=== PATIENT | male | born 1935 | race Caucasian/White ===

== ENCOUNTER → 2016-09-18 | Outpatient (CLI) | payer BC, MEDICARE ==
[2016-06-30 14:34] VITALS: BP 143/97
[~2016-09-18] MED LIST: AMLO10TA2; AMLO10TA2 PO; AMLO5TAB4 PO; ASPI325T4 PO; ASPI81TA9 PO; Aspirin PO; CARV6.252; CARV6.252 PO; CLOP75TA PO; CLOP75TA27 PO; DONE5TAB7; FAMO-63 PO; FENO134C10 PO; GLIP10TA13; GLIP10TA13 PO; GLIP10TA20 PO; HYDR-2762 PO; HYDR12.58 PO; IOHEXOL 350 MG/ML 100 ML VIAL. IV ONE; LISI2.5T PO; LORA0.5T PO; LOSA100T6 PO; LOSA1TAB18 PO; Lisinopril PO; METF500T4 PO; METO100T11 PO; METO1TAB7 PO; METO25TA9; METO25TA9 PO; OMEG500C PO; ONDA4TAB7 PO; POLY17PO5 PO; REGO40TA PO; SENN8.6T99 PO; SIMV10TA3 PO; SIMV20TA PO; SIMV80TA3 PO; TORS5TAB3 PO; ZOLP5TAB PO
[2016-09-18 09:42] LABS: CREATININE 1.3 mg/dL (0.7-1.3)
--- NOTE | 2016-09-18 12:56 | RAD ---
CTA of the abdomen, pelvis and both lower extremities with contrast, 09/18/2016: History: Abdominal aortic and popliteal artery aneurysms Multidetector CT imaging was performed following an IV bolus injection of iodinated contrast material. Multiplanar reconstructions were produced as well as 3-D volume rendered reconstructions of the major arteries. Comparison is made to a study from 08/22/2015. There is moderate calcific plaquing of the abdominal aorta. There is a bifurcated aortoiliac stent graft in place within and abdominal aortic aneurysm. The stent graft is widely patent. No endoleak is identified. The residual aneurysm sac measures 7.5 x 7.7 cm on the axial images. It appears to be unchanged in size since 08/22/2015. The celiac artery origin is widely patent. There is a replaced right hepatic artery arising from the aorta just inferior to the celiac artery level without evidence of high-grade stenosis. There is mild narrowing of the proximal superior mesenteric artery. There are two patent renal arteries bilaterally without evidence of high-grade stenosis. The iliac arteries are tortuous bilaterally. The left common iliac and external iliac arteries are widely patent. 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 It appears to be unchanged in size. There is a small amount of thrombus within the aneurysm. The lumen is widely patent. There is calcific plaquing of the left common femoral artery level without evidence of significant stenosis. There are mild scattered plaques in the femoral arteries bilaterally. There is occlusion of the left superficial femoral artery at the adductor canal level. At and just inferior to the level of occlusion that vessel appears mildly dilated. 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 The aneurysm is thrombosed. There is reconstitution of the distal popliteal artery via collateral circulation. There are moderate scattered atherosclerotic plaques in the left lower leg arteries. The posterior tibial and peroneal arteries are patent. The anterior tibial artery is occluded proximally. On the right, the common iliac, external iliac and common femoral arteries are widely patent. There are surgical clips at both groin levels. There are moderate scattered partially calcified plaques in the right superficial femoral and popliteal arteries without evidence of high-grade stenosis. The anterior tibial artery is occluded proximally. The right posterior tibial and peroneal arteries are patent, although moderate scattered plaques are present. At the right ankle level there is reconstitution of the dorsalis pedis artery via collateral circulation. Incidental CT findings include the presence of moderate coronary artery calcifications. There are bilateral renal cysts. There is mild thickening of both adrenal glands there is moderate multilevel degenerative change in the spine. There is a mild unchanged superior endplate deformity at T12. IMPRESSION: 1. Moderate generalized atherosclerotic plaquing. 2. A bifurcated aortic endograft is in place within an unchanged abdominal aortic aneurysm. There is no evidence of endoleak. 3. 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 4. Occlusion of the distal left superficial femoral artery at the adductor canal level. 5. Thrombosed left popliteal artery aneurysm. 6. Reconstitution of the distal left popliteal artery via collateral circulation. 7. 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
== END | disposition home or self-care (01) ==
LOC: CT 09:00
DX: I71.4 Abdominal aortic aneurysm, without rupture (principal); I25.10 Atherosclerotic heart disease of native coronary artery without angina pectoris; N28.1 Cyst of kidney, acquired; I72.4 Aneurysm of artery of lower extremity
CPT/HCPCS: 36415; 75635; 82565; 84520; Q9967

== ENCOUNTER → 2017-01-30 | Outpatient (CLI) | payer BC ==
[2016-06-30 14:34] VITALS: BP 143/97
[~2017-01-30] MED LIST changes: +ASPI-612 PO; -ASPI325T4 PO; +ASPI325T8 PO; -ASPI81TA9 PO; -CLOP75TA27 PO; +CLOP75TA57 PO; +GLIP-112 PO; -GLIP10TA20 PO; -IOHEXOL 350 MG/ML 100 ML VIAL. IV ONE; +METO-239; +METO-239 PO; +METO-247 PO; -METO100T11 PO; -METO25TA9; -METO25TA9 PO; +POLY17PO29 PO; -POLY17PO5 PO
--- NOTE | 2017-01-30 09:08 | RAD ---
CT chest without contrast 01/30/2017 at 0759 hours Indication: Lung nodule Comparison: CT chest 06/27/2016, 08/04/2012 Technique: Multiple axial CT images of the chest were obtained without intravenous contrast. Coronal and sagittal reformats are provided. Findings: There is a 3 mm solid noncalcified pulmonary nodule in the peripheral right upper lobe (series 3, image 66). There is a 3 mm solid noncalcified pulmonary nodule in the right middle lobe (series 3, image 139) which is stable compared to the prior examination, given differences in technique (series 3, image 81 of prior examination). Stable 5 mm solid noncalcified benign nodule in the right costophrenic angle (series 3, image 228). Stable 3 mm pulmonary nodule in the right upper lobe (series 3, image 95). Some of these nodules are apparent on the prior examination from 08/04/2012 and others are not definitively present. Stable 5-6 mm noncalcified pulmonary nodule in the left costophrenic angle (series 3, image 249). This finding is stable dating back to 08/04/2012 and benign. The nodular opacity in the medial right middle lobe appears stable dating back to 08/04/2012 and may represent scarring, favored benign etiology given stability. There are no pleural effusions. No prevascular congestion or pneumothorax. Heart size borderline enlarged. Three-vessel coronary vascular calcination is noted. No pericardial effusion. Thoracic aorta is normal in course and caliber. There is stable nodular thickening of the adrenal glands, favored to represent lipid rich adenomas. No suspicious lymphadenopathy is noted in the axillary, mediastinal or hilar regions. There is a 2 mm nonobstructing calculus in the superior pole the right kidney. Mild degenerative changes of the thoracic spine are noted. There is superior endplate Schmorl's node with minimal loss of height involving T12, likely chronic. Impression: 1. Nodular opacity in the medial right middle lobe is stable dating back to 08/04/2012 and 50 represent benign etiology such as an area of scarring. Additional 5-6 mm noncalcified pulmonary nodule in the left costophrenic angle is stable and benign. 2. There are sub 5 mm noncalcified pulmonary nodules in the right lung, of which are stable dating back to the prior examination from 11/08/2016 and others which are stable from 08/04/2012. Findings are favored to represent benign etiology. 3. 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 4. There is a 2 mm nonobstructing calculus in the superior pole the right kidney. PQRS Compliance Statement: One or more of the following individualized dose reduction techniques were utilized for this examination: 1. Automated exposure control 2. Adjustment of the mA and/or kV according to patient size 3. Use of iterative reconstruction technique
== END | disposition home or self-care (01) ==
LOC: CT 07:41
PROVIDERS: ATTEND Internal Medicine Pulmonary Disease
DX: R91.1 Solitary pulmonary nodule (principal); R91.8 Other nonspecific abnormal finding of lung field
CPT/HCPCS: 71250

== ENCOUNTER → 2017-09-07 | Outpatient (CLI) | payer BC ==
[2017-09-07] MEDS: IOHEXOL 300 MG/ML 100ML VIAL. IV (10:10)
== END | disposition home or self-care (01) ==
LOC: CT 09:25
DX: I71.4 Abdominal aortic aneurysm, without rupture (principal); I72.4 Aneurysm of artery of lower extremity; E78.2 Mixed hyperlipidemia; I11.0 Hypertensive heart disease with heart failure; E11.9 Type 2 diabetes mellitus without complications; I50.9 Heart failure, unspecified; R91.1 Solitary pulmonary nodule
CPT/HCPCS: 75635; Q9967

== ENCOUNTER → 2018-09-10 | Outpatient (CLI) | payer BC ==
[2016-06-30 14:34] VITALS: BP 143/97
[~2018-09-10] MED LIST changes: -AMLO10TA2; -AMLO10TA2 PO; +AMLO10TA8; +AMLO10TA8 PO; +CARV6.2511; +CARV6.2511 PO; -CARV6.252; -CARV6.252 PO; -GLIP-112 PO; +GLIP10TA24 PO; -HYDR-2762 PO; +HYDR-2765 PO; +LOSA100T14 PO; -LOSA100T6 PO; -LOSA1TAB18 PO; +LOSA1TAB25 PO; +METF500T16 PO; -METF500T4 PO; +SIMV80TA17 PO; -SIMV80TA3 PO
--- NOTE | 2018-09-10 16:15 | RAD ---
Ankle-brachial indices, 09/10/2018: HISTORY: Peripheral vascular disease Resting JULIO CESAR measurements were obtained. The right JULIO CESAR was 1.19 while the left JULIO CESAR was 0.90. These values are within the normal range. Electronically signed by: Stevan Stallings MD (09/10/2018 4:12 PM) [facility]
== END | disposition home or self-care (01) ==
LOC: US 14:35
PROVIDERS: ATTEND Family Medicine
DX: I71.4 Abdominal aortic aneurysm, without rupture (principal); E11.51 Type 2 diabetes mellitus with diabetic peripheral angiopathy without gangrene; Z79.4 Long term (current) use of insulin
CPT/HCPCS: 93922

== ENCOUNTER → 2018-10-12 | Outpatient (CLI) | payer BC ==
[2016-06-30 14:34] VITALS: BP 143/97
[~2018-10-12] VITALS: Ht 188 cm; Wt 123.4 kg
[~2018-10-12] MED LIST changes: +REGADENOSON 0.4 MG/5 ML DISP.SYRIN. IV ONE
--- NOTE | 2018-10-13 11:08 | RAD ---
MR#: [id number] Date of Study: 10/13/2018 Ordering Physician: MELLISA BRAVO, Referring Physician: RAMONE VALLECILLO Tech: RT Jace (Damian) (N) APPROVED REPORT Test Type: Pharmacological Stress Nurse/Tech: Hayley Chandler RN Test Indications: CAD Cardiac History: Hypertension, Diabetes, 5 stents 2016 Medications: See Electronic Medical Record Medical History: See Electronic Medical Record Resting ECG: SR with PVCs Resting Heart Rate: 63 bpm Resting Blood Pressure: 169/84mmHg Pretest Chest Pain: No chest pain Nurse/Tech Notes S1,S2 and lungs clear to auscultation. Consent: The procedure was explained to the patient in lay terms. Informed consent was witnessed. Everton eout was entered into [employer]. History and Stress Test performed by RT Ad (Damian) (N) Pharm. Details Pharmacologic stress testing was performed using 0.4mg per 5ml of regadenoson given intravenously ove r 7-10 seconds. Stress Symptoms No chest pain or symptoms. POST EXERCISE Reason for Termination: Infusion complete Target HR: No Max HR: 96 bpm Max Blood Pressure: 178/114mmHg Blood Pressure response to exercise: Normal blood pressure response during stress. Heart Rate response to exercise: WNL Chest Pain: No. Arrhythmia: Yes. PVCs ST Change: No. INTERPRETATION Stress EKG Conclusion: Baseline EKG showed sinus rhythm. No ischemic changes at peak stress. No arr hythmias. Imaging Protocol IMAGE PROTOCOL: Rest Tc-99m/stress Tc-99m 2 days Rest: Stress: Viability: Radiopharm.Tc99m WvopcdlgjBe45h Sestamibi Udhd08aGr 31.6mCi Duration 15min. 15min. Img Date 10/12/2018 10/13/2018 Inj-Img Yfaz83oey. 60min. Rest Admin Site:IV - Right AntecubitalAdministrator:RT Jace (Damian)(N) Stress Admin Site: IV - Right AntecubitalAdministrator: RT Becca Duong)(N) STRESS DATA End Diast. Vol.167.0mlLVEDV index BSA67.0ml End Syst. Vol.102.0mlLVESV index BSA41.0ml Myocardial Rqhu688.0gEject. Ktxbeouf78.0% Stress Scores Regional WT1.00Summed WT27.00 Regional WM0.00Summed WM23.00 LV Perfusion Scintigraphic images showed moderate reversible defect involving mid to distal anterior wall and also the apical wall consistent with ischemia. Also seen was a small fixed defect involving the basal inf erolateral wall consistent with previous myocardial infarction. Wall Motion Anteroapical wall hypokinesis with ejection fraction calculated at 39%. LV Perf. Quant 17 Seg. SSS15.00 17 Seg. SRS3.00 17 Seg. SDS14.00 Stress Defect Extent (% LAD)52.50Rest Defect Extent (% LAD)0.00Rev. Defect Extent (% LAD)51.90 Stress Defect Extent (% LCX) 21.30Rest Defect Extent (% LCX)5.00Rev. Defect Extent (% LCX)6.30 Stress Defect Extent (% RCA)10.00Rest Defect Extent (% RCA)12.20Rev. Defect Extent (% RCA)8.90 Stress Defect Extent (% ADAM)30.40Rest Defect Extent (% ADAM)5.00Rev. Defect Extent (% ADAM)26.50 Conclusion 1. Regadenoson cardioisotope stress test showed moderate amount of ischemia involving the mid to dist al anterior wall and apical wall. 2. Also seen was small infarct involving the basal inferolateral wall. 3. Anteroapical wall hypokinesis with ejection fraction calculated at 39%. 4. Intermediate risk for cardiac events. Signed by : Dougie Cole, Electronically Approved : 10/13/2018 11:07:24
== END | disposition home or self-care (01) ==
LOC: NM 08:33
PROVIDERS: ATTEND Internal Medicine Cardiovascular Disease
DX: I21.19 ST elevation (STEMI) myocardial infarction involving other coronary artery of inferior wall (principal); I25.89 Other forms of chronic ischemic heart disease; I25.10 Atherosclerotic heart disease of native coronary artery without angina pectoris; I10 Essential (primary) hypertension; E11.9 Type 2 diabetes mellitus without complications; Z95.818 Presence of other cardiac implants and grafts
CPT/HCPCS: 78452; A9500; J2785

== ENCOUNTER 2018-12-10 11:09 | Observation (INO) | payer BC ==
[2018-12-10] VITALS (14 sets, daily range): BP systolic 131–188; BP diastolic 67–107
[~2018-12-10] VITALS: Ht 188 cm; Wt 119.0 kg
[~2018-12-10 11:09] MED LIST changes: -REGADENOSON 0.4 MG/5 ML DISP.SYRIN. IV ONE
[2018-12-10 11:40] LABS: HEMATOCRIT 43.4 % (39.0-53.0); HEMOGLOBIN 14.7 g/dL (13.0-17.5); RED BLOOD COUNT 4.89 x10^6/uL (4.30-5.70); RED CELL DISTRIBUTION WIDTH 14.5 % (11.5-14.5); WHITE BLOOD COUNT 9.7 x10^3/uL (4.0-11.0)
[2018-12-10 11:54] LABS: PROTHROMBIN TIME PATIENT 12.5 SEC (11.7-14.0)
[2018-12-10 11:55] LABS: CALCIUM 9.2 mg/dL (8.5-10.1); CREATININE 1.2 mg/dL (0.7-1.3); GFR 57.7; POTASSIUM 3.8 mmol/L (3.5-5.1)
[2018-12-10] MEDS ORDERED: BIOT5000 PO (12:09)
[2018-12-10] MEDS ORDERED: METF500T16 PO (12:09)
[2018-12-10] MEDS ORDERED: FISH1CAP PO (12:09)
[2018-12-10] MEDS ORDERED: CYAN50LO PO (12:09)
[2018-12-10] MEDS ORDERED: LOSA1TAB19 PO (12:09)
[2018-12-10] MEDS ORDERED: MULT-289 PO (12:09)
[2018-12-10] MEDS ORDERED: LIDOCAINE 1% PF 2 ML VIAL. ONE (13:21)
[2018-12-10] MEDS ORDERED: IODIXANOL 320 MG/ML 100 ML VIAL. ONE ×3 (13:21→14:24)
[2018-12-10] MEDS ORDERED: NITROGLYCERIN 200 MCG/2 ML SYRINGE FOR CATH/VASC LAB. ONE (13:29)
[2018-12-10] MEDS ORDERED: MIDAZOLAM HCL/PF 5 MG/5 ML VIAL. ONE (13:29)
[2018-12-10] MEDS ORDERED: fentaNYL PF VIAL 100 MCG/2 ML VIAL ONE (13:29)
[2018-12-10] MEDS ORDERED: VERAPAMIL 5 MG/2 ML VIAL. ONE (13:29)
[2018-12-10] MEDS ORDERED: HEPARIN for IV BOLUS 10,000 UNIT/10 ML VIAL. ONE (13:29)
[2018-12-10] MEDS ORDERED: MIDAZOLAM HCL/PF 5 MG/5 ML VIAL. IV ONE (14:00)
[2018-12-10] MEDS ORDERED: NITROGLYCERIN 200 MCG/2 ML SYRINGE FOR CATH/VASC LAB. IART ONE (14:00)
[2018-12-10] MEDS ORDERED: VERAPAMIL 5 MG/2 ML VIAL. IART ONE (14:00)
[2018-12-10] MEDS ORDERED: fentaNYL PF VIAL 100 MCG/2 ML VIAL IV ONE (14:00)
[2018-12-10] MEDS ORDERED: HEPARIN for IV BOLUS 10,000 UNIT/10 ML VIAL. IART ONE (14:00)
[2018-12-10] MEDS ORDERED: IODIXANOL 320 MG/ML 100 ML VIAL. IART ONE (14:00)
[2018-12-10] MEDS ORDERED: CONTRAST GIVEN. MC PRN (14:00)
[2018-12-10] MEDS ORDERED: LIDOCAINE 1% PF 2 ML VIAL. INJ ONE (14:00)
[2018-12-10] MEDS ORDERED: BIVALIRUDIN 250 MG VIAL. IV ONE ×2 (14:04→14:15)
[2018-12-10] MEDS ORDERED: ASPIRIN 325 MG TABLET ONE (14:38)
[2018-12-10] MEDS ORDERED: ASPIRIN 325 MG TABLET PO ONE (14:45)
[2018-12-10] MEDS ORDERED: IV NORMAL SALINE 1000ML BAG 1,000 ML IV SCH (14:53)
[2018-12-10] MEDS ORDERED: NITROGLYCERIN SUBLINGUAL 0.4 MG BOTTLE OF 25. SL PRN (15:00)
[2018-12-10] MEDS ORDERED: HYDROcodone/APAP 5/325MG 1 TAB TABLET PO PRN ×2 (15:00)
[2018-12-10] MEDS ORDERED: ATROPINE 0.5 MG/5 ML DISP.SYRINGE. IV PRN (15:00)
[2018-12-10] MEDS ORDERED: fentaNYL PF VIAL 100 MCG/2 ML VIAL IV PRN (15:00)
[2018-12-10] MEDS ORDERED: LIDOCAINE 2% 100 MG/5 ML SYRINGE. IV PRN (15:00)
[2018-12-10] MEDS ORDERED: 0.9 % SODIUM CHLORIDE 10 ML DISP.SYRIN. IV PRN (15:00)
[2018-12-10] MEDS ORDERED: AMIODARONE 150 MG in IV DEXTROSE 5% 100ML 100 ML IV PRN (15:00)
[2018-12-10] MEDS ORDERED: ACETAMINOPHEN 325 MG TABLET. PO PRN (15:00)
--- NOTE | 2018-12-10 15:30 | NUR ---
Patient arrived to room from [facility] at 1500, patient alert and oriented, right TR Band in place, radial site is soft and no bleeding present. Vitals stable. Patient accompanied by and oriented to room, meal tray ordered. No complaints of pain. Will continue to monitor.
--- NOTE | 2018-12-10 15:51 | EKG ---
[facility] [address] [place] [address] Test Date: 2018-12-10 Test Time: 15:26:39 Pat Name: ANNETTE BARNES Department: Room: 204 1 Gender: M [employer] Canning Leader: FRANKLYN : 1935 Requested By: MELLISA BRAVO Order Number: [id number] Reading MD: Measurements Intervals [place] Rate: 64 P: 42 [place]: 208 QRS: -32 QRSD: 104 T: -8 QT: 426 QTc: 444 Interpretive Statements SINUS RHYTHM ABNORMAL LEFT AXIS DEVIATION LEFT ANTERIOR FASCICULAR BLOCK ABNORMAL ECG RI6.01 Unconfirmed report Compared to ECG 06/27/2016 03:27:16 T-wave abnormality no longer present Prolonged QT interval no longer present
[2018-12-10] MEDS ORDERED: DEXTROSE 50% 25 GM / 50ML DISP.SYRIN. IV PRN (16:00)
[2018-12-10] MEDS: LABETALOL 20 MG/4 ML DISP.SYRIN. IVP PRN ×3 (16:01→23:38)
--- NOTE | 2018-12-10 17:27 | CARD ---
MR#: [id number] Date of Study: 12/10/2018 Ordering Physician: CASSANDRA STEVEN, Referring Physician: CASSANDRA STEVEN Tech: RT Glenn (R) APPROVED REPORT Technologist: Christine Levi RT (R) Nurse: Hayley Chandler RN Procedure(s) performed: 1. Left heart catheterization, selective coronary angiography via right johnson sradial approach 2. Successful PCI/drug eluting stents placement to the left anterior descending artery Fluoro time: 18.7 mins Dose: 156 GY/CM2 Contrast: 233 ML Moderate sedation: 59 MIN INDICATION The indication(s) include : unstable angina . CSHA Clinical Frailty Scale CS Clinical Frailty Scale: Mildly Frail Heart Failure Heart Failure: No PROCEDURE NARRATIVE After explaining the risks, benefits and alternative options, informed consent was obtained from gabi ent. Patient was brought to the cardiac Birth Certificate Clerk and right wrist was prepped and draped in the usual fashion after confirming a positive modified Marcel's test. Arterial access was obtained in the [facility] t radial artery and a 6 Angolan sheath was inserted. 6 Angolan JL 3.5 and 6 Angolan JR4 catheters were used to perform selective angiography of the left and right coronary arteries after initial attempts to engage these vessels using 6 Angolan Adriel catheter were unsuccessful. The following findings we re noted. FINDINGS a. The left main coronary artery arose from the left sinus of Valsalva, gave rise to the left anteri or descending and left circumflex arteries and showed 30% distal segment stenosis. b. The left anterior descending artery showed 90% in-stent restenosis in the proximal segment, 90% s tenosis in the mid to distal segment and another 90% stenosis in the very distal segment was the apic al wall. The second diagonal branch which is a small-caliber vessel showed 80% stenosis in the midseg ment. c. The left circumflex artery showed widely patent stent in the midsegment. d. The right coronary artery was a large and dominant vessel arising from the right sinus of Valsalv a that showed a long stented midsegment which had a discrete 40% in-stent restenosis in the midportio n of the stent. INTERVENTION The left main coronary artery was engaged with a 6 Angolan XB 3.5 guide catheter and the stenoses in t he proximal and mid to distal segments were crossed with a 0.014 inch icomasoft Pro water guidewire. Thes e with predilated with a 2.0 x 12 mm euphora balloon. The mid to distal segment lesion was treated wi th 2.5 x 15 mm resolute [place] drug-eluting stent. This stent balloon was used to predilate the proxima l lesion again. Subsequently, the proximal segment stenosis was treated with a 3.0 x 15 mm resolute o nyx drug-eluting stent (the previously placed stent was bare metal stent). Follow-up angiography show ed resolution of the stenosis to 0% with ALLA-3 distal flow. Patient tolerated the procedure well. He mostasis in the right wrist was achieved using TR band. There were no immediate complications. ALLA Flow ALLA Flow (Pre-Intervention): ALLA-3 ALLA Flow (Post-Intervention): ALLA-3 ALLA Flow ALLA Flow (Pre-Intervention): ALLA-3 ALLA Flow (Post-Intervention): ALLA-3 Conclusion 1. 90% in-stent restenosis involving the proximal segment of the left anterior descending artery and 90% stenosis involving the mid to distal segment. The previously placed stents in the left circumfle x and right coronary arteries were patent. 2. Successful PCI/drug eluting stents placement to the left anterior descending artery. Recommendations 1. Aspirin 325 mg daily 2. Plavix 75 mg daily for preferably one year 3. Cardiovascular risk factor modification Signed by : Cassandra Steven, Electronically Approved : 12/10/2018 17:27:23
[2018-12-10] MEDS: INSULIN LISPRO 300 UNITS/3 ML INSULN.PEN. SQ SCH (17:51)
[2018-12-11 02:00] VITALS: BP 156/88
[2018-12-11 06:19] LABS: ALBUMIN 3.2 g/dL (3.4-5.0); CALCIUM 8.5 mg/dL (8.5-10.1); CREATININE 1.2 mg/dL (0.7-1.3); DIRECT BILIRUBIN 0.3 mg/dL (0.0-0.2); GFR 57.7; POTASSIUM 3.9 mmol/L (3.5-5.1); TOTAL BILIRUBIN 0.7 mg/dL (0.2-1.0)
[2018-12-11 06:20] LABS: CHOLESTEROL/HDL RATIO 5.9
--- NOTE | 2018-12-11 06:24 | EKG ---
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
[2018-12-11 07:19] VITALS: BP 154/80
[2018-12-11] MEDS ORDERED: CLOPIDOGREL BISULFATE 75 MG TABLET PO SCH (08:00)
[2018-12-11] MEDS ORDERED: ASPIRIN ENTERIC COATED 325 MG TABLET.DR. PO SCH (08:00)
[2018-12-11] MEDS: INSULIN LISPRO 300 UNITS/3 ML INSULN.PEN. SQ SCH ×2 (08:21→12:41)
[2018-12-11] MEDS ORDERED: amLODIPine BESYLATE 10 MG TABLET PO SCH (09:00)
[2018-12-11] MEDS ORDERED: METOPROLOL SUCC 24HR ER 25 MG TAB.ER.24H. PO SCH (09:00)
[2018-12-11 10:40] VITALS: BP 149/74
[2018-12-11] MEDS ORDERED: ASPI325T8 PO (11:08)
--- NOTE | 2018-12-11 11:56 | PDOC3 ---
Discharge Summary Visit Information Date of Admission: Dec 10, 2018 Date of Discharge: Dec 11, 2018 Admitting Diagnosis Comment: Unstable angina Final Diagnosis Unstable angina Brief Hospital Course Allergies Allergies Coded Allergies Type Severity Reaction Last Updated Verified rosuvastatin calcium Allergy Severe Swelling 11/21/15 Yes Vital Signs Vital Signs Date Time Temp Pulse Resp B/P (MAP) Pulse Ox O2 Delivery O2 Flow Rate FiO2 12/11/18 10:40 98.4 71 16 149/74 (99) 95 Room Air 98.4 12/10/18 16:00 2.0 Lab Results Laboratory Tests Test 12/10/18 11:35 12/10/18 15:21 12/10/18 17:17 12/10/18 20:15 White Blood Count 9.7 x10^3/uL (4.0-11.0) Red Blood Count 4.89 x10^6/uL (4.30-5.70) Hemoglobin 14.7 g/dL (13.0-17.5) Hematocrit 43.4 % (39.0-53.0) Mean Corpuscular Volume 89 fL (79-100) Mean Corpuscular Hemoglobin 30 pg (25-35) Mean Corpuscular Hemoglobin Concent 34 g/dL (31-37) Red Cell Distribution Width 14.5 % (11.5-14.5) Platelet Count 257 x10^3/uL (140-400) Prothrombin Time 12.5 SEC (11.7-14.0) Prothromb Time International Ratio 1.0 (0.8-1.1) Sodium Level 139 mmol/L (136-145) Potassium Level 3.8 mmol/L (3.5-5.1) Chloride Level 102 mmol/L (98-107) Carbon Dioxide Level 26 mmol/L (21-32) Anion Gap 11 (6-14) Blood Urea Nitrogen 20 mg/dL (8-26) Creatinine 1.2 mg/dL (0.7-1.3) Estimated GFR (Cockcroft-Gault) 57.7 Glucose Level 140 mg/dL (70-99) Calcium Level 9.2 mg/dL (8.5-10.1) Glucose (Fingerstick) 104 mg/dL (70-99) 168 mg/dL (70-99) 234 mg/dL (70-99) Test 12/11/18 04:50 12/11/18 07:01 12/11/18 11:21 Sodium Level 138 mmol/L (136-145) Potassium Level 3.9 mmol/L (3.5-5.1) Chloride Level 101 mmol/L (98-107) Carbon Dioxide Level 24 mmol/L (21-32) Anion Gap 13 (6-14) Blood Urea Nitrogen 21 mg/dL (8-26) Creatinine 1.2 mg/dL (0.7-1.3) Estimated GFR (Cockcroft-Gault) 57.7 Glucose Level 144 mg/dL (70-99) Calcium Level 8.5 mg/dL (8.5-10.1) Total Bilirubin 0.7 mg/dL (0.2-1.0) Direct Bilirubin 0.3 mg/dL (0.0-0.2) Aspartate Amino Transf (AST/SGOT) 19 U/L (15-37) Alanine Aminotransferase (ALT/SGPT) 23 U/L (16-63) Alkaline Phosphatase 108 U/L (46-116) Total Protein 7.0 g/dL (6.4-8.2) Albumin 3.2 g/dL (3.4-5.0) Triglycerides Level 169 mg/dL (0-150) Cholesterol Level 160 mg/dL (0-200) LDL Cholesterol, Calculated 99 mg/dL (0-100) VLDL Cholesterol, Calculated 34 mg/dL (0-40) Non-HDL Cholesterol Calculated 133 mg/dL (0-129) HDL Cholesterol 27 mg/dL (40-60) Cholesterol/HDL Ratio 5.9 Glucose (Fingerstick) 159 mg/dL (70-99) 182 mg/dL (70-99) Laboratory Tests Test 12/10/18 15:21 12/10/18 17:17 12/10/18 20:15 12/11/18 04:50 Glucose (Fingerstick) 104 mg/dL (70-99) 168 mg/dL (70-99) 234 mg/dL (70-99) Sodium Level 138 mmol/L (136-145) Potassium Level 3.9 mmol/L (3.5-5.1) Chloride Level 101 mmol/L (98-107) Carbon Dioxide Level 24 mmol/L (21-32) Anion Gap 13 (6-14) Blood Urea Nitrogen 21 mg/dL (8-26) Creatinine 1.2 mg/dL (0.7-1.3) Estimated GFR (Cockcroft-Gault) 57.7 Glucose Level 144 mg/dL (70-99) Calcium Level 8.5 mg/dL (8.5-10.1) Total Bilirubin 0.7 mg/dL (0.2-1.0) Direct Bilirubin 0.3 mg/dL (0.0-0.2) Aspartate Amino Transf (AST/SGOT) 19 U/L (15-37) Alanine Aminotransferase (ALT/SGPT) 23 U/L (16-63) Alkaline Phosphatase 108 U/L (46-116) Total Protein 7.0 g/dL (6.4-8.2) Albumin 3.2 g/dL (3.4-5.0) Triglycerides Level 169 mg/dL (0-150) Cholesterol Level 160 mg/dL (0-200) LDL Cholesterol, Calculated 99 mg/dL (0-100) VLDL Cholesterol, Calculated 34 mg/dL (0-40) Non-HDL Cholesterol Calculated 133 mg/dL (0-129) HDL Cholesterol 27 mg/dL (40-60) Cholesterol/HDL Ratio 5.9 Test 12/11/18 07:01 12/11/18 11:21 Glucose (Fingerstick) 159 mg/dL (70-99) 182 mg/dL (70-99) Brief Hospital Course Mr. Villagran is a 83 old male with a history of coronary artery disease and previous multivessel stents. Patient has had progressively increasing dyspnea on exertion and chest pressure over the past several months. He was admitted for cardiac catheterization and possible intervention. Catheterization was performed and the patient required 2 stent placement to the LAD which were done without complications. He was monitored overnight and remained stable. He is walking in the hallway without discomfort. He'll be allowed to go home later today on his present medications +1 aspirin tablet 325 mg a day. Discharge Information Condition at Discharge: Improved Follow Up: Weeks Disposition/Orders: D/C to Home Scheduled Amlodipine Besylate (Amlodipine Besylate) 10 Mg Tablet, 10 MG PO DAILY, (Reported) Entered as Reported by: OSEI GOULD on 06/27/16 0961 Last Taken: Unknown Dose on 12/10/18 Last Action: Last Taken Edited on 12/10/18 1212 by MIRANDA TAMAYO Aspirin (Aspirin) 325 Mg Tablet, 1 TAB PO DAILY for HEART, #30 Ref 5 (Reported) Entered as Reported by: BENJIE MONTIEL RN on 12/11/18 1108 Biotin (Biotin) 5,000 Mcg Tab.rapdis, 5,000 MCG PO QODAY for vitamin, (Reported) Entered as Reported by: MIRANDA TAMAYO on 12/10/181208 Last Taken: Unknown Dose on 12/09/18 Last Action: Reviewed on 12/10/181543 by OSEI GOULD Clopidogrel Bisulfate (Clopidogrel) 75 Mg Tablet, 1 TAB PO DAILY, #90 Ref 1 (Reported) Entered as Reported by: OLLIE ARTEAGA on 11/21/15 1153 Last Taken: Unknown Dose on 12/10/18 Last Action: Last Taken Edited on 12/10/18 1212 by MIRANDA TAMAYO Cyanocobalamin (Vitamin B-12) (Vitamin B-12) 50 Mcg Lozenge, 100 MCG PO QODAY for vitamin, (Reported) Entered as Reported by: MIRANDA TAMAYO on 12/10/181208 Last Taken: Unknown Dose on 12/09/18 Last Action: Reviewed on 12/10/181543 by OSEI GOULD Fish Oil/Dha/Epa (Fish Oil 1,200 Mg Fish Oil) 1 Each Capsule, 1 EACH PO QODAY for cad, (Reported) Entered as Reported by: MIRANDA TAMAYO on 12/10/181208 Last Taken: Unknown Dose on 12/09/18 Last Action: Reviewed on 12/10/181543 by OSEI GOULD Losartan/Hydrochlorothiazide (Losartan-Hctz 50-12.5 Mg Tab) 1 Each Tablet, 1 TAB PO DAILY for htn, #30 Ref 5 (Reported) Entered as Reported by: MIRANDA TAMAYO on 12/10/181208 Last Taken: Unknown Dose on 12/10/18 Last Action: Reviewed on 12/10/181543 by OSEI GOULD Metformin Hcl (Metformin Hcl) 500 Mg Tablet, 1,000 MG PO BIDWMEALS for ANTI- DIABETIC, Ref 0 (Reported) Entered as Reported by: MIRANDA TAMAYO on 12/10/181208 Last Taken: Unknown Dose on 12/09/18 Last Action: Reviewed on 12/10/181543 by OSEI GOULD Metoprolol Succinate (Metoprolol Succinate ( Xl )) 25 Mg Tab.er.24h, 1 TAB PO BID for cad, #30 Ref 5 (Reported) Entered as Reported by: OSEI GOULD on 06/27/16 0950 Last Taken: Unknown Dose on 12/10/18 Last Action: Reviewed on 12/10/18 1544 by OSEI GOULD Multivitamin With Minerals (Men's One Daily) 1 Each Tablet, 1 EACH PO DAILY for vitamin, (Reported) Entered as Reported by: MIRANDA TAMAYO on 12/10/18 1209 Last Taken: Unknown Dose on 12/09/18 Last Action: Reviewed on 12/10/18 1544 by OSEI GOULD Discontinued Medications Aspirin (Aspirin) 325 Mg Tablet, 1 TAB PO DAILY, #30 Ref 5 (Reported) Entered as Reported by: OLLIE ARTEAGA on 11/21/15 1143 Last Action: Discontinued on 12/10/18 1212 by MELLISA ESCALONA MD Dec 11, 2018 11:56
--- NOTE | 2018-12-11 14:00 | NUR ---
PATIENT GIVEN STENT CARD. IV REMOVED AND TELE MONITOR OFF. PATIENT INFORMED TO FOLLOW UP WITH CARDIOLOGY IN 4 WEEKS. PATIENT INFORMED NOT TO USE RIGHT WRIST FOR REPETITIVE MOVEMENT OR TO LIFT GREATER THAN 10 POUNDS FOR 3 DAYS POST CARDIAC CATH. PATIENT INFORMED TO START FULL DOSE ASPIRIN. PATIENT HAS NO QUESTIONS AT TIME OF DISCHARGE. PATIENT ESCORTED PER WHEELCHAIR TO [facility] PERSON[facility] BY THIS RN. PATIENT STABLE AT TIME OF DISCHARGE.
== END 2018-12-11 14:00 | disposition home or self-care (01) ==
LOC: CCL 11:09 → 2 NORTH 14:05
PROVIDERS: ADMIT Internal Medicine Cardiovascular Disease; ATTEND Internal Medicine Cardiovascular Disease
DX: I25.110 Atherosclerotic heart disease of native coronary artery with unstable angina pectoris (principal); I11.0 Hypertensive heart disease with heart failure; I50.30 Unspecified diastolic (congestive) heart failure; E78.5 Hyperlipidemia, unspecified; I71.4 Abdominal aortic aneurysm, without rupture; M48.9 Spondylopathy, unspecified; L97.529 Non-pressure chronic ulcer of other part of left foot with unspecified severity; Z90.49 Acquired absence of other specified parts of digestive tract; Z98.890 Other specified postprocedural states; Z79.82 Long term (current) use of aspirin
CPT/HCPCS: 36415; 80048; 80061; 80076; 82962; 85027; 85610; 92928; 93005; 93454; 96372; 96374; 96376; C1725; C1769; C1874; C1887; C1892; G0378; G0379; J0583; J1644; J1815; J2250; J3010; J3490; J7030; Q9967; 99152; 99153

== ENCOUNTER → 2019-10-20 | Outpatient (CLI) | payer BC ==
[~2019-10-20] MED LIST changes: +BIOT5000 PO; +CYAN50LO PO; +FISH1CAP PO; +IOHEXOL 350 MG/ML 100 ML VIAL. IV ONE; +LOSA1TAB19 PO; +MULT-289 PO; +SIMV10TA15 PO; -SIMV10TA3 PO
--- NOTE | 2019-10-20 14:27 | RAD ---
CT ANGIO ABD ILEO/FEMOR RUNOFF Indication: Abdominal aortic aneurysm Technique: Pre and postcontrast CT imaging was performed of the abdomen through the lower extremities, multiplanar reconstruction images to include MIP and 3-D reconstruction images submitted. No oral contrast was given. One or more of the following individualized dose reduction techniques were utilized for this examination: 1. Automated exposure control 2. Adjustment of the mA and/or kV according to patient size 3. Use of iterative reconstruction technique. Comparison: September 07, 2017 Findings: There is again infrarenal abdominal aortic aneurysm and aortobiiliac stent graft. Maximal size of aneurysm sac is up to about 7.7 cm transverse oblique, not simply changed. No endoleak is identified. There is no new periaortic hematoma or fluid collection. There is again aneurysmal dilatation of the left internal iliac artery up to 2.6 cm transverse by 2.7 cm AP also stable. There is again visualization of 2 right renal arteries and single patent left renal artery, no significant stenosis. Superior mesenteric and celiac arteries are patent. Findings of the lower extremity runoff are also unchanged. There is again occlusion of the right anterior tibial artery. There is again multifocal plaque with narrowing and variable segmental occlusion of the right posterior tibial artery. Right peroneal artery is again visualized to the level of the ankle. On the left, there is again occlusion beginning near the level of the adductor canal of the distal superficial femoral artery and also of the chronically thrombosed and dilated popliteal artery, again some reconstitution of the very distal left popliteal artery just above the anterior tibial artery origin. There is again occlusion of the left anterior tibial artery just beyond its origin. There is visualization of the left peroneal artery to level of the ankle, scattered plaque present. There is also visualization of the left posterior tibial artery although also variable plaque and narrowing as seen previously. There is again 7.5 cm right renal cyst, somewhat larger. There is also medial left renal cyst about 3 cm somewhat larger as previously 2.5 cm. There is also larger focus of somewhat exophytic density of the anterior, inferior left kidney about 2.2 cm versus previously 1.4 cm with internal density measurements 31 Hounsfield units. There are also 2 small foci of hypodensity of the inferior right kidney. More posterior focus measures about 1.4 cm versus previously 0.8 cm, internal density measurements of 27 Hounsfield units. More anterior focus of the inferior right kidney measures 1.3 cm versus 0.8 cm on previous exam with internal density measurements suggestive of a cyst at 10 Hounsfield units. There is also a 1.1 cm hypodense lesion of the mid right kidney just superior to the larger with density measurements of a cyst at 13 Hounsfield units. There are also couple of other small likely cyst of the superior right kidney. There is coronary calcification. 0.4 cm left lower lobe pulmonary nodule image 21 series 5 is similar. 0.4 cm right lower lobe nodule image 19 series 5 is stable. 0.9 cm right lower lobe nodule image 14 series 5 is stable. 3 tiny right lower lobe nodules best seen on images 89 series 5 are similar to [address] There is some chronic mild infiltrate of the right middle lobe as seen previously. Fullness of the right adrenal gland is unchanged. No new significant abnormality is identified of the liver, spleen, or pancreas. Gallbladder is again not seen. There is again multilevel lumbar degenerative disc disease and spondylosis as well as facet degenerative change. There is multilevel lumbar neural foramina compromise, also some variable lateral recess stenosis. IMPRESSION: 1. There is stable infrarenal abdominal aortic aneurysm and aortobiiliac stent graft, no endoleak identified. 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 2. Findings of the lower extremity runoff are similar. There is again occlusion of the distal left superficial femoral artery at level of the adductor canal extending through most of the popliteal artery which is aneurysmally dilated. There is again multifocal narrowing and plaque of the lower extremity runoff vessels bilaterally as stated, occlusion of the anterior tibial arteries bilaterally and other areas of segmental occlusion or critical stenoses of the runoff vessels. 3. There are again renal cysts although indeterminate density measurements of larger foci of the inferior bilateral kidneys as stated. Either ultrasound evaluation or attention on follow-up such as in 6 months is advised. 4. There are again pulmonary nodules and coronary calcification. Electronically signed by: Haja Goff MD (10/20/2019 2:25 PM) [place] [id number]
== END | disposition home or self-care (01) ==
LOC: CT 10:30
PROVIDERS: ATTEND Physician Assistant
DX: I71.4 Abdominal aortic aneurysm, without rupture (principal); I72.3 Aneurysm of iliac artery; I70.8 Atherosclerosis of other arteries; N28.1 Cyst of kidney, acquired; R91.1 Solitary pulmonary nodule; R91.8 Other nonspecific abnormal finding of lung field; M51.36 Other intervertebral disc degeneration, lumbar region; M47.816 Spondylosis without myelopathy or radiculopathy, lumbar region; I25.10 Atherosclerotic heart disease of native coronary artery without angina pectoris
CPT/HCPCS: 75635; Q9967

== ENCOUNTER → 2020-02-02 | Outpatient (CLI) | payer BC ==
[~2020-02-02] MED LIST changes: -ASPI-612 PO; +ASPI-886 PO; -IOHEXOL 350 MG/ML 100 ML VIAL. IV ONE
[2020-02-02 09:20] LABS: BASO # 0.1 x10^3/uL (0.0-0.2); BASO % 1 % (0-3); EOS # 0.2 x10^3/uL (0.0-0.7); EOS % 3 % (0-3); HEMATOCRIT 45.1 % (39.0-53.0); HEMOGLOBIN 15.5 g/dL (13.0-17.5); LYMPH # 3.5 x10^3/uL (1.0-4.8); LYMPH % 37 % (24-48); MEAN CORPUSCULAR HEMOGLOBIN 31 pg (25-35); MEAN CORPUSCULAR HGB CONC 34 g/dL (31-37); MEAN CORPUSCULAR VOLUME 89 fL (79-100); MONO # 0.5 x10^3/uL (0.0-1.1); MONO % 5 % (0-9); NEUT % 54 % (31-73); PLATELET COUNT 238 x10^3/uL (140-400); RED BLOOD COUNT 5.09 x10^6/uL (4.30-5.70); RED CELL DISTRIBUTION WIDTH 14.5 % (11.5-14.5); WHITE BLOOD COUNT 9.3 x10^3/uL (4.0-11.0)
[2020-02-02 09:25] LABS: BILIRUBIN,URINE NEGATIVE (NEG); CLARITY,URINE CLEAR; COLOR,URINE YELLOW; NITRITE,URINE NEGATIVE (NEG); PROTEIN,URINE NEGATIVE (NEG-TRACE)
[2020-02-02 09:30] LABS: ALBUMIN 3.5 g/dL (3.4-5.0); CALCIUM 8.9 mg/dL (8.5-10.1); CREATININE 1.2 mg/dL (0.7-1.3); DIRECT BILIRUBIN 0.2 mg/dL (0.0-0.2); GFR 57.5; POTASSIUM 3.8 mmol/L (3.5-5.1); TOTAL BILIRUBIN 0.8 mg/dL (0.2-1.0); TOTAL PROTEIN 7.6 g/dL (6.4-8.2)
[2020-02-02 09:32] LABS: CHOLESTEROL/HDL RATIO 6.8
[2020-02-02 09:34] LABS: BACTERIA,URINE 0 /HPF (0-FEW); RBC,URINE 0 /HPF (0-2); SQUAMOUS EPITHELIAL CELL,UR OCC /LPF; WBC,URINE 0 /HPF (0-4)
== END | disposition home or self-care (01) ==
LOC: LAB 08:37
PROVIDERS: ATTEND Internal Medicine Cardiovascular Disease
DX: I25.10 Atherosclerotic heart disease of native coronary artery without angina pectoris (principal); E78.5 Hyperlipidemia, unspecified; I10 Essential (primary) hypertension
CPT/HCPCS: 36415; 80048; 80061; 80076; 81001; 83735; 85025

== ENCOUNTER → 2020-03-19 | Outpatient (CLI) | payer BC ==
[~2020-03-19] MED LIST changes: +AMLO-187; +AMLO-187 PO; -AMLO10TA8; -AMLO10TA8 PO
--- NOTE | 2020-03-19 14:40 | KCIC ---
EXAM: Right hip, 2 views. HISTORY: Pain. Fall. COMPARISON: None. FINDINGS: 2 views of the right hip are obtained. There is no fracture, dislocation or subluxation. There is mild marginal femoral head spurring. There is slight calcification involving the acetabular labrum. There are inguinal clips. There are vascular calcifications. IMPRESSION: Mild right hip osteoarthritis. No acute osseous finding. Electronically signed by: Crystal Kevin MD (03/19/2020 2:38 PM) [id number]
== END ==
LOC: KCIC 11:29
PROVIDERS: ATTEND Internal Medicine
DX: M16.11 Unilateral primary osteoarthritis, right hip (principal); M76.891 Other specified enthesopathies of right lower limb, excluding foot; M25.851 Other specified joint disorders, right hip
CPT/HCPCS: 73502

== ENCOUNTER 2020-06-23 14:39 | Emergency (ER) | payer BC ==
[~2020-06-23] VITALS: Ht 182.9 cm; Wt 117.9 kg
[2020-06-23] MEDS ORDERED: ERYT1OIN6 OP (16:37)
--- NOTE | 2020-06-23 16:38 | PHYS DOC ---
Past Medical History Past Medical History: Diabetes-Type II, Hypertension, Other Additional Past Medical Histor: tremors, AORTIC ANEURSYM, boarderline diabetic Past Surgical History: Angioplasty, Appendectomy, Cholecystectomy, Tonsillectomy, Other Additional Past Surgical Histo: back surgery X 2, CARDIAC STENT PLACED Smoking Status: Former Smoker Alcohol Use: Occasionally Drug Use: None General Adult EDM: Chief Complaint: EYE PROBLEMS HPI: HPI: Patient is a 84 year old male who presents with left upper eyelid with a reddened stye that he states is itchy and slightly tender to touch. He states is been there for 3 days. Denies change in vision, discharge from the eye, fever, pain to the actual eye. There is no extraocular eye motion tenderness. Patient rates his discomfort a tender, itchy 5 out of 10. Review of Systems: Review of Systems: Constitutional: Denies fever or chills. [] Eyes: Denies change in visual acuity. +Left upper eyelid stye with redness and itching [] HENT: Denies nasal congestion or sore throat. [] Respiratory: Denies cough or shortness of breath. [] Cardiovascular: Denies chest pain or edema. [] GI: Denies abdominal pain, nausea, vomiting, bloody stools or diarrhea. [] : Denies dysuria. [] Musculoskeletal: Denies back pain or joint pain. [] Integument: Denies rash. [] Neurologic: Denies headache, focal weakness or sensory changes. [] Endocrine: Denies polyuria or polydipsia. [] Lymphatic: Denies swollen glands. [] Psychiatric: Denies depression or anxiety. [] Heart Score: Risk Factors: Risk Factors: DM, Current or recent (<one month) smoker, HTN, HLP, family history of CAD, obesity. Risk Scores: Score 0 - 3: 2.5% MACE over next 6 weeks - Discharge Home Score 4 - 6: 20.3% MACE over next 6 weeks - Admit for Clinical Observation Score 7 - 10: 72.7% MACE over next 6 weeks - Early Invasive Strategies Allergies: Allergies: Allergies Coded Allergies Type Severity Reaction Last Updated Verified rosuvastatin calcium Allergy Severe Swelling 11/21/15 Yes Physical Exam: PE: Constitutional: Well developed, well nourished, no acute distress, non-toxic appearance. [] HENT: Normocephalic, atraumatic, bilateral external ears normal, oropharynx moist, no oral exudates, nose normal. [] Eyes: PERRLA, EOMI, conjunctiva normal, no discharge. Left upper eyelid stye with redness, 1+ swelling to that upper eyelid only. No orbital cellulitis involved. [] Neck: Normal range of motion, no tenderness, supple, no stridor. [] Cardiovascular:Heart rate regular rhythm, no murmur [] Lungs & Thorax: Bilateral breath sounds clear to auscultation [] Abdomen: Bowel sounds normal, soft, no tenderness, no masses, no pulsatile masses. [] Skin: Warm, dry, left upper eyelid stye erythema, no rash. [] Back: No tenderness, no CVA tenderness. [] Extremities: No tenderness, no cyanosis, no clubbing, ROM intact, no edema. [] Neurologic: Alert and oriented X 3, normal motor function, normal sensory function, no focal deficits noted. [] Psychologic: Affect normal, judgement normal, mood normal. [] Current Patient Data: Vital Signs: Vital Signs Date Time Temp Pulse Resp B/P (MAP) Pulse Ox O2 Delivery O2 Flow Rate FiO2 06/23/20 15:16 97.7 91 14 213/113 (146) 97 97.7 EKG: EKG: [] Radiology/Procedures: Radiology/Procedures: [] Course & Med Decision Making: Course & Med Decision Making Pertinent Labs and Imaging studies reviewed. (See chart for details) See HPI. Alert and oriented x4. Ambulatory with a steady gait. Patient is educated to use a warm compress over the eye and will be given a antibiotic ointment to place over the eye. Speaks in full clear sentences. Afebrile. PERRLA. Eye Exam Visual accuity: See nursing note Eye exam: PERRL, Extraocular muscles intact. No signs of ruptured globe. Sclera clear. Red reflex present. Left upper eyelid stye Foreign body: No foreign bodies seen with examination or with lid flip exam. Regan-pen: N/A Fluorescein test: Outer corneal abrasion. Anesthetic: Tetracaine [] Dragon Disclaimer: Dragon Disclaimer: This electronic medical record was generated, in whole or in part, using a voice recognition dictation system. Departure Departure Impression: Primary Impression: Stye Qualified Codes: H00.014 - Hordeolum externum left upper eyelid Additional Impression: Cornea abrasion Qualified Codes: S05.02XA - Injury of conjunctiva and corneal abrasion without foreign body, left eye, initial encounter Disposition: 01 DC HOME SELF CARE/HOMELESS Condition: STABLE Referrals: MELLISA BRAVO MD (PCP) Patient Instructions: Eye - Corneal Abrasion, Sty Additional Instructions: Use medication as prescribed. Follow-up with your primary care physician. Use a warm compress. Scripts Erythromycin Base (Erythromycin) 1 Gm Oint...g. 1 GM OP QID for 10 Days, #1 MISC Prov: FATEMEH MAST APRN 06/23/20 FATEMEH MAST APRN Jun 23, 2020 16:38
[2020-06-23] MEDS ORDERED: FLUORESCEIN OPHTH TEST STRIP. ONE (16:59)
[2020-06-23] MEDS ORDERED: TETRACAINE 0.5% OPHTH SOLUTION 4ML BOTTLE. ONE (16:59)
[2020-06-23] MEDS ORDERED: TETRACAINE 0.5% OPHTH SOLUTION 4ML BOTTLE. OS ONE (17:00)
[2020-06-23] MEDS ORDERED: FLUORESCEIN OPHTH TEST STRIP. OS ONE (17:00)
[2020-06-23 17:09] VITALS: BP 185/108
== END 2020-06-23 17:11 | disposition home or self-care (01) ==
LOC: ER 14:39
DX: S05.02XA Injury of conjunctiva and corneal abrasion without foreign body, left eye, initial encounter (principal); H00.014 Hordeolum externum left upper eyelid; E11.9 Type 2 diabetes mellitus without complications; I10 Essential (primary) hypertension; Z87.891 Personal history of nicotine dependence; Z95.5 Presence of coronary angioplasty implant and graft; X58.XXXA Exposure to other specified factors, initial encounter; Y93.89 Activity, other specified; Y92.89 Other specified places as the place of occurrence of the external cause; Y99.8 Other external cause status
CPT/HCPCS: 99284

== ENCOUNTER → 2020-08-03 | Outpatient (CLI) | payer BC ==
[~2020-08-03] MED LIST changes: +ERYT1OIN6 OP
--- NOTE | 2020-08-03 10:43 | RAD ---
EXAM: Lower extremity arterial Doppler sonogram with ankle-brachial indices (JULIO CESAR). HISTORY: Peripheral vascular disease. Diabetes. Leg pain. TECHNIQUE: Doppler sonographic evaluation of the lower extremities was performed and pressure reading s were assessed. FINDINGS: Right brachial pressure: 148 mmHg Left brachial pressure: 140 mmHg Right ankle pressure (dorsalis pedis): 163 mmHg Right ankle pressure (posterior tibial): 180 mmHg Right JULIO CESAR: 1.21 Left ankle pressure (dorsalis pedis): 118 mmHg Left ankle pressure (posterior tibial): 111 mmHg Left JULIO CESAR: 0.79 IMPRESSION: 1. Decreased left ankle-brachial index consistent with [id number] peripheral vascular disease. 2. Normal right ankle-brachial index. Electronically signed by: Crystal Kevin MD (08/03/2020 10:41 AM) [id number]
--- NOTE | 2020-08-03 10:46 | RAD ---
EXAM: Abdominal aortic sonogram. HISTORY: Abdominal aortic aneurysm and left internal iliac artery aneurysm. TECHNIQUE: Smith scale and color Doppler sonographic imaging of the aorta and iliac bifurcation with s pectral analysis was performed. COMPARISON: CT dated 10/20/2019. FINDINGS: Aorta and proximal left iliac artery are predominantly obscured due to bowel gas and body h abitus. The right common iliac artery measures 1.3 cm proximally, 1.3 cm within its mid aspect and 1. 5 cm within its distal aspect. The left common iliac artery measures 1.8 cm within its mid aspect and 1.4 cm within its distal aspect. IMPRESSION: 1. Significantly limited exam due to bowel gas and patient body habitus. The previously described abd ominal aortic aneurysm and aortic endograft and left internal iliac artery aneurysm are not seen. 2. Ectatic left greater than right common iliac arteries measuring 1.8 cm and 1.5 cm in maximum calib er. Electronically signed by: Crystal Kevin MD (08/03/2020 10:44 AM) [id number]
== END ==
LOC: US 09:42
PROVIDERS: ATTEND Surgery
DX: I71.4 Abdominal aortic aneurysm, without rupture (principal); I73.9 Peripheral vascular disease, unspecified
CPT/HCPCS: 93922; 93978

== ENCOUNTER → 2020-08-22 | Outpatient (CLI) | payer BC ==
[~2020-08-22] MED LIST changes: +IOHEXOL 350 MG/ML 100 ML VIAL. IV ONE
[2020-08-22 10:55] LABS: CREATININE 1.1 mg/dL (0.7-1.3); GFR 63.6
--- NOTE | 2020-08-23 09:12 | RAD ---
CTA of the abdomen and pelvis without and with contrast 08/22/2020 CLINICAL HISTORY: Abdominal aortic aneurysm post stent graft. TECHNIQUE: Unenhanced contiguous, 2 mm axial sections were obtained through the abdomen and pelvis. A fter the intravenous administration of 90 cc of Omnipaque 350, contiguous, 0.625 mm axial sections we re obtained through the abdomen and pelvis. 3 mm reconstructed axial and 3-D MIP sagittal and coronal along with volume rendered 3-D reconstructed images were obtained. One or more of the following individualized dose reduction techniques were utilized for this study: 1. Automated exposure control. 2. Adjustment of the mA and/or kV according to patient size. 3. Use of iterative reconstruction technique. FINDINGS: Comparison study is dated 10/12/2019. Images through the lung bases demonstrate minimal dependent subsegmental atelectasis bilaterally. An area of probable scarring is seen involving the inferior aspect of the right middle lobe, unchanged. The unenhanced CT images demonstrate no renal or ureteral calculus. Decreased attenuation of the liver parenchyma is seen postcontrast images consistent with fatty infil tration. A 1.8 cm rounded low-attenuation lesion is involving the spleen which likely represents a he mangioma. The pancreas is within normal limits. Fullness of both adrenal glands is seen, unchanged. R ounded low-attenuation lesions are seen involving both kidneys which measure 5 mm to 7.7 cm in size. These likely represent cysts. No further imaging evaluation is recommended. The gallbladder is not visualized consistent with a cholecystectomy. No free fluid or free air is wit hin abdomen. Air and stool are seen throughout the colon. There is no evidence of bowel obstruction. Atherosclerotic calcification of the abdominal aorta and its branches is again seen. A stent graft is seen traversing an abdominal aortic aneurysm which extends to the distal common iliac arteries bilat erally. The aneurysm sac measures 7.9 x 7.4 cm in greatest AP and transverse dimensions. This is unch anged from the previous examination. There is no CT evidence of an endoleak. The splenic artery arise s from the abdominal aorta to the left of the celiac trunk. This is a normal variation. Both of these arterial origins are patent. The origin of the superior mesenteric artery is patent. There are 2 lynda al arteries bilaterally which appear patent. The left common iliac artery is again noted be slightly ectatic. Mild to moderate atheromatous plaque formation seen involving the common iliac arteries and their branches. No area of stenosis or occlusion is seen. An aneurysm of the left internal iliac yovany ry is seen within the left pelvis which is largely thrombosed. This measures 3.2 cm in size. This has not significantly changed. Images through the pelvis demonstrate the urinary bladder to be contracted. Calcifications are seen w ithin the prostate gland. The prostate gland is mildly enlarged likely related to BPH. Surgical clips are seen within the right inguinal region. No free fluid is seen. Degenerative changes are seen invo lving lower thoracic and throughout the lumbar spine along with both SI joints and both hips. IMPRESSION: Stable CT appearance of the abdominal aortic aneurysm with stent graft noted in place. Th ere is no CT evidence of an endoleak. No acute abnormality is seen. Electronically signed by: Gordon Miller MD (08/23/2020 9:10 AM) [id number]
== END ==
LOC: CT 10:02
PROVIDERS: ATTEND Surgery
DX: I71.4 Abdominal aortic aneurysm, without rupture (principal); I72.3 Aneurysm of iliac artery; M47.814 Spondylosis without myelopathy or radiculopathy, thoracic region
CPT/HCPCS: 36415; 74174; 82565; 84520; Q9967

== ENCOUNTER → 2020-09-18 | Outpatient (CLI) | payer BC ==
[~2020-09-18] MED LIST changes: -IOHEXOL 350 MG/ML 100 ML VIAL. IV ONE
--- NOTE | 2020-09-18 14:50 | RAD ---
INDICATION: Reason: lt leg edema / Spl. Instructions: / History: COMPARISON: None. TECHNIQUE: Grayscale, color and doppler ultrasound images were obtained of the left lower extremity v enous vasculature. LEFT: No thrombus identified in the common femoral vein, femoral vein, popliteal vein or visualized calf ve ins. IMPRESSION: * No thrombus identified in deep venous system of the left lower extremity. * Mildly complex cystic lesion at the left popliteal fossa measuring 37 x 20 x 11 mm. Most common ca use would be Belcher's cyst. Electronically signed by: Hector Mcadams MD (09/18/2020 2:48 PM) [id number]
== END ==
LOC: US 13:29
PROVIDERS: ATTEND Family Medicine
DX: M71.22 Synovial cyst of popliteal space [Baker], left knee (principal); R60.0 Localized edema
CPT/HCPCS: 93971

== ENCOUNTER → 2021-02-05 | Outpatient (CLI) | payer BC ==
[~2021-02-05] MED LIST changes: -LISI2.5T PO; +LISI2.5T12 PO
--- NOTE | 2021-02-05 15:05 | RAD ---
EXAM: Chest, 2 views. HISTORY: Shortness of breath. COMPARISON: None. FINDINGS: 2 views of the chest are obtained. There is suspected lingular and left lower lobe scarring superimposed on diffuse chronic appearing interstitial changes. There is no consolidation, pleural e ffusion or pneumothorax. The heart is normal in size. IMPRESSION: Chronic appearing interstitial changes. Electronically signed by: Crystal Kevin MD (02/05/2021 3:02 PM) [id number]
== END ==
LOC: RAD 14:15
PROVIDERS: ATTEND Internal Medicine Cardiovascular Disease
DX: R06.02 Shortness of breath (principal)
CPT/HCPCS: 71046